=== PATIENT | female | born 1990 | race Native Hawaiian/Other Pacific Islander ===

== ENCOUNTER 2017-02-27 22:08 | Inpatient (IN) | payer OTHER ==
[2017-02-27 23:42] VITALS: BMI 28.9
[2017-02-27] MEDS ORDERED: Lactated Ringer's 500 ML IV SCH (23:45)
[2017-02-28] MEDS ORDERED: Lactated Ringer's 1,000 ML IV ONE (00:05)
[2017-02-28] MEDS ORDERED: Lactated Ringer's 500 ML IV PRN (00:07)
[2017-02-28 00:56] VITALS: O2SAT 100
[2017-02-28 01:01] LABS: BASO # 0.1 K/uL (0.0-0.2); EOS # 0.1 K/uL (0.0-0.7); EOS % 0.4 % (0.0-4.0); HEMATOCRIT 36.7 % (34.0-47.0); LYMPH # 1.5 K/uL (1.0-4.3); MEAN CELL VOLUME 89.5 fl (81.0-99.0); MEAN CORPUSCULAR HEMOGLOBIN 30.2 pg (27.0-31.0); MEAN CORPUSCULAR HGB CONC 33.7 g/dL (33.0-37.0); MEAN PLATELET VOLUME 8.5 fl (7.2-11.7); MONO # 1.3 K/uL (0.0-0.8); MONO % 9.3 % (0.0-10.0); NEUT # 10.7 K/uL (1.8-7.0); NEUT % 78.3 % (50.0-75.0); NRBC % 0.1 % (0.0-0.0); WHITE BLOOD COUNT 13.7 K/uL (4.8-10.8)
--- NOTE | 2017-02-28 01:36 | OBADHP ---
Datetime: 02/27/2017 23:32 Admit Comment, IP Provider: 26-year-old at 37 weeks and 2 days gestational age presents to the ED complaining of contractions. Patient denies any vaginal bleeding or leakage of fluids. Patient re ports good movement. records reviewed. Past medical history none Past surgical history none Medications vitamins No known drug allergies Obstetrical history Social history no tobacco, no drugs, no alcohol Physical exam: Referred physical exam findings Assessment: 26-year-old at 37 weeks gestational age in early labor. Both maternal being and well-b eing reassuring at this time. GBS negative Plan: Admit for management of labor and delivery as per her PMD. Plan discussed with patient and all pat ient questions answered. Pelvic Type - PN: Adequate Extremities - PN: Normal Abdomen - PN: Normal Back - PN: Normal Breast - PN: Normal Lungs - PN: Normal Heart - PN: Normal Thyroid - PN: Normal Neurologic - PN: Normal HEENT - PN: Normal General - PN: Normal FHR - Baseline A Provider: 140s Membranes, Provider: Intact Contraction Comments Provider: q2-4min IP Hx Assessment: The History has been Reviewed and is Current Vital Signs Provider: Reviewed; Within Normal Limits IP Chief Complaint: Uterine contractions NICHD Variability Prov Fetus A: Moderate 6-25bpm NICHD Accel Fetus A IP Provider: [id number] FHR Category Provider Fetus A: Category I Dilatation, Provider: 1 Effacement, Provider: long Station, Provider: high Genitourinary Exam: Normal DTRs - PN: Normal EGA AdmitDate IP: 37.3 IP Adm Impression: Term, intrauterine IP Admit Plan: Admit to unit; Initiate labor protocol
[2017-02-28] MEDS: Lactated Ringer's 1,000 ML IV SCH ×4 (01:45→20:46)
[2017-02-28] MEDS ORDERED: Bupivacaine HCl 0.25% PF (10 ml) Inj ONE (02:43)
[2017-02-28] MEDS ORDERED: Fentanyl/Bupivacaine HCl 250 ML EPI ONE (02:43)
[2017-02-28] MEDS ORDERED: cefOXitin Sodium 1 GM in Sodium Chloride 0.9% 100 ML IVPB ONE ×2 (09:09→14:00)
[2017-02-28] MEDS ORDERED: Oxytocin 30 units/LR 500ML 30 U/500 ML BAG IV ONE (09:16)
[2017-02-28] MEDS ORDERED: ePHEDrine 50 mg/ml Inj ONE (09:17)
[2017-02-28] MEDS ORDERED: Morphine 5 mg/10 ml preservative-free Inj(Duramorph) ONE (09:17)
[2017-02-28] MEDS ORDERED: Phenylephrine 10 mg/ml Inj ONE (09:18)
[2017-02-28] MEDS ORDERED: Lidocaine 2% PF (10 ml) Amp ONE (09:34)
[2017-02-28] MEDS ORDERED: DiphenhydrAMINE 50 mg/ml Inj IVP PRN ×2 (10:52→14:00)
[2017-02-28] MEDS ORDERED: Oxycodone/Acetaminophen 5/325 mg Tab PO PRN (13:21)
[2017-02-28] MEDS ORDERED: cefOXitin Sodium 1 GM in Sodium Chloride 0.9% 100 ML IVPB SCH (17:00)
[2017-02-28] MEDS: cefOXitin Sodium 1 GM in Sodium Chloride 0.9% 100 ML IVPB SCH (17:17)
[2017-02-28] MEDS: Oxycodone/Acetaminophen 5/325 mg Tab PO PRN (18:39)
[2017-03-01] MEDS: Oxycodone/Acetaminophen 5/325 mg Tab PO PRN ×5 (00:08→23:35)
[2017-03-01] MEDS: Lactated Ringer's 1,000 ML IV SCH ×2 (00:42→06:01)
[2017-03-01] MEDS: cefOXitin Sodium 1 GM in Sodium Chloride 0.9% 100 ML IVPB SCH ×2 (00:43→09:21)
[2017-03-01 07:41] LABS: HEMATOCRIT 31.2 % (34.0-47.0); MEAN CELL VOLUME 89.9 fl (81.0-99.0); MEAN CORPUSCULAR HEMOGLOBIN 30.5 pg (27.0-31.0); MEAN CORPUSCULAR HGB CONC 33.9 g/dL (33.0-37.0); RED CELL DISTRIBUTION WIDTH 14.1 % (11.5-14.5); WHITE BLOOD COUNT 11.1 K/uL (4.8-10.8)
--- NOTE | 2017-03-01 11:46 | OBPPN ---
Datetime: 03/01/2017 11:38 PP Pain Prov: Within normal limits PP Nausea Prov: Denies PP Flatus Prov: Yes PP BM Prov: No PP Breasts Prov: Normal PP Heart Prov: Normal PP Lungs Prov: Normal PP Abdomen/Uterus Prov: Normal PP Lochia Prov: Normal PP Vulva/Perineum Prov: Normal PP CVA Tenderness Prov: Normal PP Extremities Prov: Normal PP C/S Incision Prov: Normal PP Progress Prov: Normal PP Impression Prov: Normal progression PP Plan Prov: Continue present management PP Progress Note Prov: stable pod1 continue present care dressing clean will remove after shower macho l dc iv when hydrated IP PP Procedures: None Vital Signs Provider PP: Reviewed; Within Normal Limits
[2017-03-01] MEDS ORDERED: Lansinoh for Breast Feeding Mothers TP ONE (22:16)
--- NOTE | 2017-03-02 10:44 | OBPPN ---
Datetime: 03/02/2017 10:38 PP Pain Prov: Within normal limits PP Pain Prov comment: No SOB, chest pains or leg pains PP Nausea Prov: Denies PP Flatus Prov: Yes PP BM Prov: No PP Nausea Prov comment: denies C/F PP Breasts Prov: Normal PP Lungs Prov: Normal PP Abdomen/Uterus Prov: Abnormal PP Lochia Prov: Normal PP Vulva/Perineum Prov: Normal PP CVA Tenderness Prov: Normal PP Extremities Prov: Normal PP C/S Incision Prov: Normal PP Progress Prov: Normal PP Comments Phys Exam Prov: breast not entorged, breast feeding; Abd soft nd, depressible Fundus fir m below the umb. Incision clean and dry no active bleeding or sign of infection. Ext no calf tender ness PP Impression Prov: Normal progression PP Plan Prov: Continue present management PP Progress Note Prov: Rhogam had been given since baby is RH pos, continue PP and po care Dulcolax suppt this am and OOB and ambulation IP PP Procedures: None Vital Signs Provider PP: Reviewed
[2017-03-03] MEDS: Oxycodone/Acetaminophen 5/325 mg Tab PO PRN ×2 (02:20→13:17)
--- NOTE | 2017-03-03 09:08 | OBDCSUM ---
Datetime: 03/03/2017 09:05 Discharged to, Provider: Home Follow up at, Provider: Disch Instr Activity: Bedrest; May be up to bathroom; May be up for meals; May Shower Disch Instr Diet: Regular Discharge Instructions, Provider: Specific instructions as noted Discharge Diagnosis, Provider: Term Delivered Discharge Time: 03/03/2017 09:05 Follow up in weeks, Provider: 1 week Disch Referrals: None Disch Activity Restrictions: No exercising; No lifting; No driving; Minimize walking; Minimize stair -climbing; No sexual activity; Nothing in vagina - [place], tampons, douche Contraception after Delivery: Undecided
--- NOTE | 2017-03-04 08:40 | OBPPN ---
Datetime: 03/04/2017 08:34 PP Pain Prov: Within normal limits PP Pain Prov comment: No SOB, chest or leg pains PP Nausea Prov: Denies PP Flatus Prov: Yes PP BM Prov: Yes PP Breasts Prov: Normal PP Lungs Prov: Normal PP Abdomen/Uterus Prov: Abnormal PP Lochia Prov: Normal PP Vulva/Perineum Prov: Normal PP CVA Tenderness Prov: Normal PP Extremities Prov: Normal PP C/S Incision Prov: Normal PP Progress Prov: Normal PP Comments Phys Exam Prov: breast not engorged, abd soft ND depressible fundus firm below the umb. Incision clean and dry no suppt or discharge. Ext no calf tenderness PP Impression Prov: Normal progression PP Plan Prov: Discharge PP Progress Note Prov: D/C home and appt to office in 1 wk Instructions given IP PP Procedures: None Vital Signs Provider PP: Reviewed
--- NOTE | 2017-03-04 08:43 | OBDCSUM ---
Datetime: 03/04/2017 08:39 Discharged to, Provider: Home Follow up at, Provider: Dr Matthew Disch Instr Activity: Bedrest; May be up to bathroom; May be up for meals; May Shower Disch Instr Diet: Regular Discharge Instructions, Provider: Routine instructions given Discharge Diagnosis, Provider: Term Delivered; Missed Follow up in weeks, Provider: 1 wk Disch Referrals: None Contraception discussed, Prov: Yes Disch Activity Restrictions: No exercising; No lifting; No driving; Minimize walking; Minimize stair -climbing; No sexual activity; Nothing in vagina - [place], tampons, douche Discharge Comment, Provider: rx for Percocet given and continue PNC vit and iron Discharge Diagnosis Prov Other: FITL/meconium stained fluid/ nuchal cord Contraception after Delivery: Undecided
--- NOTE | 2017-03-04 09:49 | OP ---
PROCEDURE DATE: 02/28/2017 PREOPERATIVE DIAGNOSES: 1. at term. 2. Nonreassuring tracing far from delivery. 3. intolerance to labor. POSTOPERATIVE DIAGNOSES: 1. at term. 2. Nonreassuring tracing far from delivery. 3. intolerance to labor. 4. Meconium stained fluid. 5. Nuchal cord x1. PROCEDURE PERFORMED: Primary low-transverse segment section. SURGEON: Mainor Matthew MD CHIEF ENTERPRISE ARCHITECT: Dr. Dye, who was there for the entire duration of the case. Pharmacy Delivery Driver needed in positioning the patient, opening up the abdomen, delivery of the baby, and closure of the abdomen. ANESTHESIA USED: Epidural per Dr. Mckeon. ESTIMATED BLOOD LOSS: 800 mL. DRAINS USED: None. REPLACEMENTS USED: None. FINDINGS: 1. Delivered living baby boy, baby appears term, baby appears to slightly large for gestational age, baby cried spontaneously, pediatrist in attendance. score of 9 and 9. 2. Nuchal cord x1. 3. Amniotic fluid meconium stained. 4. Placenta complete and intact. 5. Both tubes and ovaries appeared grossly within normal limits to inspection bilaterally. DESCRIPTION OF PROCEDURE: The patient was taken to the operating room and placed on the operating table with an indwelling Moss catheter in the bladder draining bloody urine at this time. Following this, we then proceeded to a augment anesthesia. The Venodyne boots were applied to both legs and the abdomen was then draped and prepped in the usual sterile manner. Anesthesia was then tested and found to be well secured and a Pfannenstiel incision was then made using sharp dissection two fingerbreadths above the symphysis pubis. The incision was then extended down to the subcutaneous tissue also using sharp dissection. At this time, hemostasis was obtained by means of electrocoagulation. The fascia was then identified, was then entered at the midline. Incision of the fascia was then extended laterally on each direction. Following this, the rectus muscle was then identified, was then slit in the midline exposing the peritoneum. Peritoneal layer was then picked up using two Lanette clamps and retracted superiorly and entered using sharp dissection. Incision was then extended superiorly and inferiorly under direct visualization. At this time, we then proceeded to identify the bladder, which was then retracted inferiorly using a [place] retractor. The low transverse segment of the uterus was then identified and the visceroperitoneum covering this area was then entered. Using blunt dissection, a bladder flap was then created and retracted inferiorly using the same [place] retractor. An incision was then made in the low transverse segment of the uterus upon entering the uterine cavity. Thick meconium stained fluid noted to be present. At this time, we then proceeded to a extending incision laterally on each direction using bandage scissors and using a manual scooping procedure, living baby boy was then delivered. The baby appears slightly large for gestational age. The baby was immediately aspirated using a bulb suction. There was a loop of cord around the neck undone prior to full delivery. After this, we then proceeded to double clamp the umbilicus cut and the baby was handed to the pediatric personnel who was standing by. Samples of cord blood were then obtained and the placenta was then delivered complete and intact. The uterus was then exteriorized in order to provide better visualization and we then proceeded to clean the uterine cavity using moist lap pads. The uterus was massaged and contracted well. At this time, we then proceeded to use sterile T clamps to hold the uterine incision. The uterine incision was then approximated using a 0 Vicryl suture in a continuous interlocking manner. A second layer was also applied using 0 Vicryl suture in a continuous manner. Hemostasis checked and found to be well secured. At this time, we then proceeded to close the bladder flap using a 2 0 Vicryl in a continuous manner. All operative area were checked and hemostatically secured. Free amniotic fluid and blood were then evacuated from the pelvic cavity. The pelvic cavity was then irrigated using saline solution and the uterus allowed to retract back into its original position. Both tubes and ovaries appeared grossly within normal limits to inspection bilaterally and at this time, we then proceeded to a note that all operative area were hemostatically secured. The peritoneum was then approximated using 0 Vicryl suture in a continuous manner. Rectus muscle was also approximated at midline using 0 Vicryl suture in a continuous manner. At this time, we then proceeded to approximate the fascia using 1 Vicryl suture in a continuous manner. Fascia was then checked and found to be free of defect. Subcutaneous tissue was irrigated using saline solution and approximated using several interrupted 2-0 plain sutures. The skin was then approximated using a 3 0 Prolene in a subcuticular fashion. Steri-Strips were then applied. The patient tolerated the procedure well. There were no complications. Sponge, instrument, and needle counts were correct x3. The patient was then transferred to the recovery room in satisfactory condition. Mainor Matthew MD [email or web address]
[2017-03-05 02:33] VITALS: BP 113/75; PULSE 66; RESP 18; TEMP 97.8
== END 2017-03-04 19:15 | disposition home or self-care (01) | DRG 765 ==
LOC: H.EROB2 22:08 → H.L&D 23:45 → H.OB/GYN 02-28 13:30
PROVIDERS: ADMIT Specialist; ATTEND Specialist
PROC: 4A1HXCZ Monitoring of Products of Conception, Cardiac Rate, External Approach (ICD-10-PCS; 2017-02-27)
PROC: 10D00Z1 Extraction of Products of Conception, Low, Open Approach (ICD-10-PCS; principal; 2017-02-28)
PROC: 3E0234Z Introduction of Serum, Toxoid and Vaccine into Muscle, Percutaneous Approach (ICD-10-PCS; 2017-02-28)
DX: O36.63X0 Maternal care for excessive fetal growth, third trimester, not applicable or unspecified (principal); O36.0930 Maternal care for other rhesus isoimmunization, third trimester, not applicable or unspecified; O76 Abnormality in fetal heart rate and rhythm complicating labor and delivery; Z37.0 Single live birth; O77.0 Labor and delivery complicated by meconium in amniotic fluid; O69.81X0 Labor and delivery complicated by cord around neck, without compression, not applicable or unspecified; Z3A.37 37 weeks gestation of pregnancy